=== PATIENT | female | born 1985 | race Caucasian/White ===

== ENCOUNTER 2017-09-04 08:11 | Inpatient (IN) | payer OTHER, MEDICAID ==
[2017-09-04] MEDS ORDERED: METHYLERGONOVINE 0.2 MG INJ IM ×2 (08:30→12:00)
[2017-09-04] MEDS ORDERED: MISOPROSTOL 200 MCG TAB PR ×2 (08:30→12:00)
[2017-09-04] MEDS ORDERED: CEFAZOLIN 2 GM/50 ML (PMX) 50 ML IV (08:30)
[2017-09-04] MEDS ORDERED: OXYTOCIN 30 UNITS/LR 500 ML IV ×3 (08:30→12:00)
[2017-09-04] MEDS ORDERED: CARBOPROST 250 MCG INJ IM ×2 (08:30→12:00)
[2017-09-04 09:17] LABS: ADD MAN DIFF? NO
[2017-09-04 09:21] LABS: BASOPHILS % 0.2 % (0.0-2.0); EOSINOPHILS % 0.4 % (0.0-7.0); HEMATOCRIT 43.5 % (37.0-47.0); HEMOGLOBIN 14.2 g/dl (12.0-16.0); LYMPHOCYTES # 1.6 10^3/ul (0.8-2.9); LYMPHOCYTES % 16.5 % (15.0-51.0); MEAN CORPUSCULAR HEMOGLOBIN 26.3 pg (29.0-33.0); MEAN CORPUSCULAR HGB CONC 32.6 g/dl (32.0-37.0); MEAN CORPUSCULAR VOLUME 80.6 fl (82.0-101.0); MONOCYTE # 0.6 10^3/ul (0.3-0.9); MONOCYTES % 6.5 % (0.0-11.0); NEUTROPHIL # 7.3 10^3/ul (1.6-7.5); NEUTROPHILS % 75.1 % (39.0-77.0); PLATELET COUNT 179 10^3/UL (140-415)
[2017-09-04 09:21] LABS: WHITE BLOOD COUNT 9.7 10^3/ul (4.8-10.8)
[2017-09-04 09:45] LABS: INR 0.98; PROTIME 13.1 Sec (11.9-14.9)
[2017-09-04 09:46] LABS: PARTIAL THROMBOPLASTIN TIME 27.2 Sec (25.0-35.0)
[2017-09-04] MEDS: LACTATED RINGER'S 1,000 ML IV (10:04)
[2017-09-04 10:12] LABS: HEPATITIS B SURFACE ANTIGEN NEGATIVE (NEGATIVE)
[2017-09-04] MEDS ORDERED: METOCLOPRAMIDE 10 MG INJ (10:32)
[2017-09-04] MEDS ORDERED: ONDANSETRON 4 MG INJ (10:32)
[2017-09-04] MEDS ORDERED: EPHEDrine SULFATE 50 MG/5 ML SYG (10:32)
[2017-09-04] MEDS ORDERED: morphine SULFATE/PF (10 MG/10 ML) INJ (10:32)
[2017-09-04] MEDS ORDERED: OXYTOCIN 10 UNIT INJ ×2 (10:32→11:07)
[2017-09-04] MEDS ORDERED: BUPIVACAINE 0.75%/DEXT (SPINAL) 2 ML INJ (10:33)
[2017-09-04] MEDS ORDERED: DIPHENHYDRAMINE 50 MG INJ (11:31)
[2017-09-04] MEDS: OXYTOCIN 30 UNITS/LR 500 ML IV ×2 (11:51→16:01)
[2017-09-04] MEDS ORDERED: OXYCODONE/ACETAMINOPHEN (5/325) TAB PO (12:00)
[2017-09-04] MEDS ORDERED: morphine 2 MG INJ IV ×2 (13:30)
[2017-09-04] MEDS ORDERED: DIPHENHYDRAMINE 50 MG INJ IV (13:30)
[2017-09-04] MEDS ORDERED: NALOXONE (0.4 MG/ML) INJ IV (13:30)
[2017-09-04] MEDS: morphine SULFATE/PF (10 MG/10 ML) INJ SPINAL (13:30)
[2017-09-04] MEDS ORDERED: EPHEDrine SULFATE 50 MG/5 ML SYG IV (13:30)
[2017-09-04] MEDS: ONDANSETRON 4 MG INJ IV (13:35)
[2017-09-04] MEDS: SENNA/DOCUSATE NA (8.6MG/50MG) TAB PO (21:00)
[2017-09-04 22:13] LABS: RAPID PLASMA REAGIN NONREACTIVE (NR)
[2017-09-05] MEDS: LACTATED RINGER'S 1,000 ML IV ×2 (02:09→10:11)
[2017-09-05] MEDS: KETOROLAC 30 MG INJ IV (05:14)
[2017-09-05] MEDS: IBUPROFEN 600 MG TAB PO ×5 (06:00→23:41)
[2017-09-05] MEDS: SENNA/DOCUSATE NA (8.6MG/50MG) TAB PO ×2 (09:22→21:50)
[2017-09-05 10:03] LABS: ADD MAN DIFF? NO
[2017-09-05 10:07] LABS: WHITE BLOOD COUNT 11.7 10^3/ul (4.8-10.8)
[2017-09-05 10:07] LABS: BASOPHILS % 0.1 % (0.0-2.0); EOSINOPHILS % 0.2 % (0.0-7.0); HEMATOCRIT 36.7 % (37.0-47.0); LYMPHOCYTES # 1.4 10^3/ul (0.8-2.9); MEAN CORPUSCULAR HEMOGLOBIN 26.8 pg (29.0-33.0); MEAN CORPUSCULAR HGB CONC 32.7 g/dl (32.0-37.0); MEAN CORPUSCULAR VOLUME 81.9 fl (82.0-101.0); MEAN PLATELET VOLUME 12.5 fl (7.4-10.4); MONOCYTE # 0.7 10^3/ul (0.3-0.9); MONOCYTES % 5.7 % (0.0-11.0); NEUTROPHIL # 9.5 10^3/ul (1.6-7.5); NEUTROPHILS % 81.2 % (39.0-77.0); PLATELET COUNT 167 10^3/UL (140-415); RED BLOOD COUNT 4.48 10^6/ul (4.20-5.40)
[2017-09-05] MEDS: OXYCODONE/ACETAMINOPHEN (5/325) TAB PO (21:50)
[2017-09-06] MEDS: IBUPROFEN 600 MG TAB PO ×3 (05:26→18:05)
[2017-09-06] MEDS: SENNA/DOCUSATE NA (8.6MG/50MG) TAB PO ×2 (09:32→20:59)
[2017-09-07] MEDS: IBUPROFEN 600 MG TAB PO ×3 (00:16→12:00)
[2017-09-07] MEDS: LANOLIN 7 GM TUBE TOP (00:24)
[2017-09-07] MEDS: SENNA/DOCUSATE NA (8.6MG/50MG) TAB PO (09:00)
== END 2017-09-07 15:25 | disposition home or self-care (01) | DRG 765 ==
LOC: L-D 08:11 → PP1 14:24
PROVIDERS: Obstetrics & Gynecology
PROC: 0UL70ZZ Occlusion of Bilateral Fallopian Tubes, Open Approach (ICD-10-PCS; 2017-09-04 10:30)
DX: O34.211 Maternal care for low transverse scar from previous cesarean delivery (principal); Z68.41 Body mass index [BMI] 40.0-44.9, adult; O99.214 Obesity complicating childbirth; E66.01 Morbid (severe) obesity due to excess calories; Z30.2 Encounter for sterilization; Z3A.39 39 weeks gestation of pregnancy; Z37.0 Single live birth
CPT/HCPCS: 85025; 85610; 85730; 86592; 86850; 86900; 86901; 87340; 88302; 94760; 99464